=== PATIENT | male | born 1945 | race Caucasian/White ===

== ENCOUNTER → 2016-09-04 | Outpatient (CLI) | payer MEDICARE, OTHER ==
[~2016-09-04] MED LIST: ACET-2321 PO; ASPI81TA2 PO; DOCU-168 PO; ENOX40DI SQ; FOLI0.4T2 PO; INDA1.255 PO; INSU100V13 SQ; INSU100V8 SQ; ISOS30TA53 PO; LOSA100T44 PO; MAGN400O4 PO; METO-482 PO; OMEP40CA52 PO; OXYC-544 PO; POLY17PO6 PO; ROSU10TA PO; SENN-156 PO
--- NOTE | 2016-09-04 15:21 | DI ---
Indication: ITS.REASON: M54.5 LOW BACK PAIN; M47.9 Spondylosis, unspecified PROCEDURE: MRI LUMBAR SPINE W/O CONTRAST: Encounter: Initial Comparison: None Technique: Multiplanar multisequence MR imaging of the lumbar spine was performed without contrast. Findings: Alignment lumbar spine shows degenerative grade 1 anterolisthesis of L4 on L5 and minimal scoliosis. No acute fracture identified. Conus medullaris terminates normally at L1. Paraspinal soft tissues show an abnormal contour to the right kidney with multiple left renal cysts. Segmental analysis: L1-L2: Mild disk height loss and small protrusion resulting in mild central canal stenosis. Degenerative facet change contributing to mild right and moderate left neural foraminal stenosis. L2-L3: Minimal disk bulging with degenerative facet change contributing to mild central canal stenosis. Mild left foraminal stenosis. No significant right foraminal narrowing. L3-L4: Disc bulge with degenerative facet change contributing to mild central canal stenosis. Mild bilateral neural foraminal stenosis. L4-L5: Degenerative facet hypertrophy with a disk protrusion resulting in severe central canal stenosis and compression of the thecal sac and nerve roots. Severe right and moderate left neural foraminal stenosis. L5-S1: Mild degenerative facet disease. Right foraminal disk protrusion without mild central canal stenosis. Mild to moderate right foraminal stenosis. Mild left foraminal narrowing. Impression: 1. Degenerative disk and facet disease as above with severe central canal stenosis at L4-L5. 2. Abnormal contour to the right kidney. Recommend renal ultrasound for further evaluation. .
--- NOTE | 2016-09-04 15:23 | DI ---
Indication: ITS.REASON: M54.5 LOW BACK PAIN; M47.9 Spondylosis, unspecified PROCEDURE: MRI THORACIC SPINE W/O CONTRAS: Encounter: Initial Comparison: None Technique: Multiplanar, multisequence, thoracic spine protocol MR imaging without contrast of the spine was acquired. FINDINGS: Alignment of the thoracic spine is within normal limits. The vertebral body heights are maintained. Chronic mild wedging of several mid to lower thoracic vertebra, less than 20%. Age-appropriate degenerative changes are seen within the facet joints and intervertebral disks, but these do not result in significant compromise of the spinal canal or neural foramina. The thoracic cord is normal in morphology, caliber, and signal intensity on the acquired sequences. There is no evidence of cord compression or intraspinal mass. IMPRESSION: 1. No acute abnormality of the thoracic spine. 2. No evidence of spinal cord compression or evidence of nerve root compromise in the thoracic spine region. .
--- NOTE | 2016-09-04 15:27 | DI ---
Indication: ITS.REASON: Long-standing Neck pain with headaches; M47.9 Spondylosis, unspecified PROCEDURE: MRI CERVICAL SPINE W/O CONTRAS: Encounter: Initial Comparison: None Technique: Multiplanar multisequence MR imaging of the cervical spine was performed without contrast. Findings: Alignment of the cervical spine is straightened with loss of the normal lordosis. Degenerative grade 1 anterolisthesis of C5 on C6. Vertebral body heights are maintained. No acute fracture seen. The cervical and visualized upper thoracic spinal cord signal intensity is normal. The paraspinal soft tissues are unremarkable. Segmental analysis: C2-C3: No significant disk herniation, central canal or neural foraminal stenosis. C3-C4: Small disk osteophyte without significant central canal or neural foraminal stenosis. C4-C5: Degenerative facet changes with mild uncovertebral hypertrophy and small central disk bulge but no significant central canal or neural foraminal stenosis. C5-C6: Degenerative facet hypertrophy predominantly on the left. Mild central disk bulge without central canal stenosis. Mild left neural foraminal stenosis. No right foraminal narrowing. C6-C7: Disk osteophyte complex with degenerative uncovertebral and facet changes resulting in moderate bilateral neural foraminal stenosis and mild central canal narrowing. C7-T1: Normal Impression: Mild degenerative changes, greatest at C6-C7. .
== END ==
LOC: IMA 12:16
PROVIDERS: ATTEND Family Medicine
DX: M48.06 Spinal stenosis, lumbar region (principal); M47.896 Other spondylosis, lumbar region; M47.897 Other spondylosis, lumbosacral region; M50.322 Other cervical disc degeneration at C5-C6 level; M50.323 Other cervical disc degeneration at C6-C7 level; M51.26 Other intervertebral disc displacement, lumbar region; N28.9 Disorder of kidney and ureter, unspecified